=== PATIENT | female | born 1990 | race Caucasian/White ===

== ENCOUNTER 2017-08-12 01:33 | Emergency (ER) | payer BC ==
[2017-08-12 01:47] VITALS: BP 104/63
[2017-08-12] MEDS ORDERED: Ketorolac 30 MG/ML SDV IM ONE (02:04)
--- NOTE | 2017-08-12 02:14 | EDM.PDOC ---
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 Much cramping. Is having a miscarriage. A recent US revealed demise. She is 10 weeks from conception. demise at 8 weeks. Has not had a hgb checked. Cramping/pain much worse since 8 pm otherwise ongoing mildly for 4 days. Onset: Other Onset Date: 08/08/17 Duration: Day(s):, Getting Worse Location: Reports: Abdomen (Uterine) Quality: Reports: Other (cramping) Severity: Moderate Improves with: Reports: None Worsens with: Reports: Other (? time) Context: Reports: Other (First trimester miscarriage. ) Associated Symptoms: Reports: Weakness, Other (light-headed.). Denies: Fever/ Chills Treatments ATTENDING PHYSICIAN: Reports: Other (see below) (none) abdomina pain Pain Score (Numeric/FACES): 8 - Related Data Allergies Allergy/AdvReac Type Severity Reaction Status Date / Time acetaminophen [From Percocet] Allergy Hyperactivi Verified 08/12/17 01:41 ty hydrocodone [From Vicodin] Allergy Other Verified 08/12/17 01:41 oxycodone [From Percocet] Allergy Hyperactivi Verified 08/12/17 01:41 ty Past Medical History HEENT History: Reports: Impaired Vision Cardiovascular History: Reports: None Respiratory History: Reports: None Gastrointestinal History: Reports: None Genitourinary History: Reports: None 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: 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: , Spontaneous , Other (See Below) Other OB/BYN History: x2 miscarriages Musculoskeletal History: Reports: None Neurological History: Reports: None Psychiatric History: Reports: Anxiety Endocrine/Metabolic History: Reports: None Hematologic History: Reports: None Immunologic History: Reports: None Oncologic (Cancer) History: Reports: None Dermatologic History: Reports: None - Infectious Disease History Infectious Disease History: Reports: Chicken Pox - Past Surgical History Head Surgeries/Procedures: Reports: None HEENT Surgical History: Reports: None Cardiovascular Surgical History: Reports: None Respiratory Surgical History: Reports: None GI Surgical History: Reports: None Female Surgical History: Reports: D&C Endocrine Surgical History: Reports: None Neurological Surgical History: Reports: None Musculoskeletal Surgical History: Reports: Other (See Below) Other Musculoskeletal Surgeries/Procedures:: achilles tendon repair Oncologic Surgical History: Reports: None Dermatological Surgical History: Reports: None Social & Family History - Tobacco Use Smoking Status *Q: Never Smoker - Caffeine Use Caffeine Use: Reports: None - Recreational Drug Use Recreational Drug Use: No ED ROS GENERAL - Review of Systems Review Of Systems: See Below Constitutional: Reports: No Symptoms, Weakness. Denies: Fever, Chills HEENT: Reports: No Symptoms Respiratory: Reports: Shortness of Breath (mild) Cardiovascular: Reports: Lightheadedness Endocrine: Reports: No Symptoms GI/Abdominal: Reports: Abdominal Pain (crampy low abdomen.). Denies: Hematemesis, Hematochezia : Reports: Other (passing clots vaginally) Musculoskeletal: Reports: No Symptoms Skin: Reports: No Symptoms Neurological: Reports: No Symptoms Psychiatric: Reports: No Symptoms ED EXAM - Physical Exam Exam: See Below Exam Limited By: No Limitations General Appearance: Alert, WD/WN, Anxious, Mild Distress Eye Exam: Bilateral Eye: Normal Inspection Ears: Normal External Exam, Normal Canal, Hearing Grossly Normal, Normal TMs Nose: Normal Inspection, Normal Mucosa, No Blood Throat/Mouth: Normal Inspection, Normal Lips, Normal Teeth, Normal Gums, Normal Oropharynx, Normal Voice, No Airway Compromise Head: Atraumatic, Normocephalic Neck: Normal Inspection, Supple Respiratory/Chest: No Respiratory Distress, Lungs Clear, Normal Breath Sounds, No Accessory Muscle Use Cardiovascular: Regular Rate, Rhythm, No Edema GI/Abdominal Exam: Normal Bowel Sounds, Soft, Non-Tender, No Distention Back Exam: Normal Inspection Extremities: Normal Inspection, Normal Range of Motion, Non-Tender, No Pedal Edema Neurological: Alert, Oriented, CN II-XII Intact, Normal Cognition, No Motor/ Sensory Deficits Psychiatric: Normal Affect, Normal Mood Skin Exam: Warm, Dry, Intact, Normal Color, No Rash Lymphatic: No Adenopathy Course - Vital Signs Last Recorded V/S: Last Vital Signs Temp 36.3 C 08/12/17 01:42 Pulse 68 08/12/17 01:42 Resp 17 08/12/17 01:42 BP 104/63 08/12/17 01:42 Pulse Ox 100 08/12/17 02:18 Orthostatic Blood Pressure [ 105/71 Standing] Orthostatic Blood Pressure [ 99/68 Sitting] Orthostatic Blood Pressure [ 116/73 Supine] - Orders/Labs/Meds Orders: Active Orders 24 hr Category Date Time Status Orthostatic Vital Signs [RC] ASDIRECTED Care 08/12/17 02:03 Active LORazepam [Ativan] Med 08/12/17 02:29 Once 0.5 mg PO ONETIME ONE Labs: Laboratory Tests 08/12/17 Range/Units 02:04 Hgb 12.2 (12.0-15.0) g/dL Meds: Medications Discontinued Medications Generic Name Dose Route Start Last Admin Trade Name Danyel PRN Reason Stop Dose Admin Ketorolac Tromethamine 30 mg 08/12/17 02:04 Toradol IM 08/12/17 02:05 ONETIME ONE Departure - Departure Time of Disposition: 02:50 Disposition: Home, Self-Care 01 Condition: Good Clinical Impression: Incomplete miscarriage - Discharge Information Referrals: Corrine Vernon CNM [Primary Care Provider] - Forms: ED Department Discharge - My Orders Last 24 Hours: My Active Orders 08/12/17 02:03 Orthostatic Vital Signs [RC] ASDIRECTED 08/12/17 02:29 LORazepam [Ativan] 0.5 mg PO ONETIME ONE - Assessment/Plan Last 24 Hours: My Active Orders 08/12/17 02:03 Orthostatic Vital Signs [RC] ASDIRECTED 08/12/17 02:29 LORazepam [Ativan] 0.5 mg PO ONETIME ONE
[2017-08-12] MEDS ORDERED: LORazepam 0.5 MG Tab PO ONE (02:29)
== END 2017-08-12 03:00 | disposition home or self-care (01) ==
LOC: JP.ED 01:33
DX: O03.9 Complete or unspecified spontaneous abortion without complication (principal); Z98.890 Other specified postprocedural states; Z88.5 Allergy status to narcotic agent; Z88.6 Allergy status to analgesic agent
CPT/HCPCS: 36415; 85018; 96372; 99284; A9270; J1885

== ENCOUNTER 2017-10-23 17:42 | Emergency (ER) | payer BC ==
--- NOTE | 2017-10-23 18:12 | EDM.PDOC ---
ED HPI GENERAL MEDICAL PROBLEM - General Chief Complaint: General Stated Complaint: CHEST PAIN Time Seen by Provider: 10/23/17 18:11 Source of Information: Reports: Patient History Limitations: Reports: No Limitations - History of Present Illness INITIAL COMMENTS - FREE TEXT/NARRATIVE: 26-year-old female who has had a persistent right upper quadrant abdominal and chest discomfort for the past 2 weeks. A gallbladder ultrasound was normal, she scheduled for a HIDA scan tomorrow. No fevers or chills, intermittent nausea and no diarrhea or distention of the abdomen. No urinary symptoms. She is having a lot of "night sweats". She has a past history of anaplasmosis and Lyme' s disease, she is concerned the symptoms are similar. At times her pain radiates to the back, it does not seem to be related to meals. She can even have pain when waking up from sleep. Onset: Unknown/Unsure (Symptoms have been ongoing for weeks) Location: Reports: Chest, Abdomen Severity: Moderate Improves with: Reports: None Worsens with: Reports: None Associated Symptoms: Reports: Chest Pain. Denies: Cough, Diaphoresis, Loss of Appetite, Shortness of Breath Right Lower Chest Pain Score (Numeric/FACES): 6 - Related Data Allergies Allergy/AdvReac Type Severity Reaction Status Date / Time acetaminophen [From Percocet] Allergy Hyperactivi Verified 08/12/17 01:41 ty hydrocodone [From Vicodin] Allergy Other Verified 08/12/17 01:41 oxycodone [From Percocet] Allergy Hyperactivi Verified 08/12/17 01:41 ty Past Medical History HEENT History: Reports: Impaired Vision Cardiovascular History: Reports: None, Other (See Below) Other Cardiovascular History: echo a month ago Respiratory History: Reports: None Gastrointestinal History: Reports: None Genitourinary History: Reports: None 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: , 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 , Other (See Below) Other OB/BYN History: x2 miscarriages Musculoskeletal History: Reports: None Neurological History: Reports: None Psychiatric History: Reports: Anxiety Endocrine/Metabolic History: Reports: None Hematologic History: Reports: None Immunologic History: Reports: Other (See Below) Other Immunologic History: history of lymes and anaplasmosis Oncologic (Cancer) History: Reports: None Dermatologic History: Reports: None - Infectious Disease History Infectious Disease History: Reports: Chicken Pox - Past Surgical History Head Surgeries/Procedures: Reports: None HEENT Surgical History: Reports: None Cardiovascular Surgical History: Reports: None Respiratory Surgical History: Reports: None GI Surgical History: Reports: None Female Surgical History: Reports: D&C Endocrine Surgical History: Reports: None Neurological Surgical History: Reports: None Musculoskeletal Surgical History: Reports: Other (See Below) Other Musculoskeletal Surgeries/Procedures:: achilles tendon repair Oncologic Surgical History: Reports: None Dermatological Surgical History: Reports: None Social & Family History - Tobacco Use Smoking Status *Q: Never Smoker - Caffeine Use Caffeine Use: Reports: Coffee - Recreational Drug Use Recreational Drug Use: No ED ROS GENERAL - Review of Systems Review Of Systems: See Below Constitutional: Reports: Diaphoresis (Nighttime sweats). Denies: Fever, Chills HEENT: Reports: No Symptoms Respiratory: Denies: Shortness of Breath, Cough Cardiovascular: Reports: Chest Pain (Anterior right lower chest just above the right upper quadrant) GI/Abdominal: Reports: Abdominal Pain, Nausea. Denies: Diarrhea, Decreased Appetite, Vomiting : Reports: No Symptoms Skin: Reports: No Symptoms Neurological: Denies: Headache Psychiatric: Reports: No Symptoms ED EXAM, GENERAL - Physical Exam Exam: See Below Exam Limited By: No Limitations General Appearance: Alert, No Apparent Distress Eye Exam: Bilateral Eye: Normal Inspection (EOMs intact, no jaundice, hydration normal) Respiratory/Chest: No Respiratory Distress, Lungs Clear, Other (No chest wall tenderness to palpation or lateral compression) Cardiovascular: Regular Rate, Rhythm GI/Abdominal: Soft, Tender (I can reproduce tenderness with palpation of the right upper quadrant, there is no guarding) Back Exam: No: CVA Tenderness (R), CVA Tenderness (L) Neurological: Alert, Oriented Psychiatric: Normal Affect, Normal Mood Skin Exam: Warm, Dry Course - Vital Signs Last Recorded V/S: Last Vital Signs Temp 97.8 F 10/23/17 20:44 Pulse 79 10/23/17 20:44 Resp 16 10/23/17 20:44 BP 116/76 10/23/17 20:44 Pulse Ox 99 10/23/17 20:44 - Orders/Labs/Meds Orders: Active Orders 24 hr Category Date Time Status Peripheral IV Care [RC] . DIRECTED Care 10/23/17 18:39 Active Abdomen Pelvis w Cont [CT] Stat Exams 10/23/17 19:11 Taken EHRLICHIA CHAFFEENSIS, IGG&IGM [REF] Stat Lab 10/23/17 18:37 Received LYME AB SCREEN RFLX [REF] Stat Lab 10/23/17 18:37 Received Labs: Laboratory Tests 10/23/17 10/23/17 10/23/17 Range/Units 18:37 18:37 18:43 WBC 8.4 (4.5-11.0) K/uL RBC 4.84 (3.30-5.50) M/uL Hgb 15.2 H D (12.0-15.0) g/dL Hct 43.0 (36.0-48.0) % MCV 89 (80-98) fL MCH 31 (27-31) pg MCHC 35 (32-36) % Plt Count 250 (150-400) K/uL Neut % (Auto) 67 H (36-66) % Lymph % (Auto) 26 (24-44) % [place] % (Auto) 6 (2-6) % Eos % (Auto) 1 L (2-4) % Baso % (Auto) 1 (0-1) % Sodium 138 L (140-148) mmol/L Potassium 3.2 L (3.6-5.2) mmol/L Chloride 102 (100-108) mmol/L Carbon Dioxide 27 (21-32) mmol/L Anion Gap 12.2 (5.0-14.0) mmol/L BUN 17 (7-18) mg/dL Creatinine 0.7 (0.6-1.0) mg/dL Est Cr Clr Drug Dosing 96.32 mL/min Estimated GFR (MDRD) > 60 (>60) Glucose 93 (74-106) mg/dL Calcium 9.4 (8.5-10.1) mg/dL Total Bilirubin 0.5 (0.2-1.0) mg/dL AST 21 (15-37) U/L ALT 37 (12-78) U/L Alkaline Phosphatase 49 (46-116) U/L C-Reactive Protein 0.15 (0.0-0.3) mg/dL Total Protein 8.0 (6.4-8.2) g/dL Albumin 4.4 (3.4-5.0) g/dL Globulin 3.6 H (2.3-3.5) g/dL Albumin/Globulin Ratio 1.2 (1.2-2.2) Amylase 68 (25-115) U/L Lipase 163 (73-393) U/L Urine Color Urine Appearance Urine pH (4.5-8.0) Ur Specific [place] (1.008-1.030) Urine Protein (NEGATIVE) mg/dL Urine Glucose (UA) (NEGATIVE) mg/dL Urine Ketones (NEGATIVE) mg/dL Urine Occult Blood (NEGATIVE) Urine Nitrite (NEGATIVE) Urine Bilirubin (NEGATIVE) Urine Urobilinogen (NORMAL) mg/dL Ur Leukocyte Esterase (NEGATIVE) Urine RBC (0-5) Urine WBC (0-5) Ur Epithelial Cells Amorphous Sediment Urine Bacteria Urine Mucus Urine HCG, Qual Negative 10/23/17 Range/Units 18:43 WBC (4.5-11.0) K/uL RBC (3.30-5.50) M/uL Hgb (12.0-15.0) g/dL Hct (36.0-48.0) % MCV (80-98) fL MCH (27-31) pg MCHC (32-36) % Plt Count (150-400) K/uL Neut % (Auto) (36-66) % Lymph % (Auto) (24-44) % [place] % (Auto) (2-6) % Eos % (Auto) (2-4) % Baso % (Auto) (0-1) % Sodium (140-148) mmol/L Potassium (3.6-5.2) mmol/L Chloride (100-108) mmol/L Carbon Dioxide (21-32) mmol/L Anion Gap (5.0-14.0) mmol/L BUN (7-18) mg/dL Creatinine (0.6-1.0) mg/dL Est Cr Clr Drug Dosing mL/min Estimated GFR (MDRD) (>60) Glucose (74-106) mg/dL Calcium (8.5-10.1) mg/dL Total Bilirubin (0.2-1.0) mg/dL AST (15-37) U/L ALT (12-78) U/L Alkaline Phosphatase (46-116) U/L C-Reactive Protein (0.0-0.3) mg/dL Total Protein (6.4-8.2) g/dL Albumin (3.4-5.0) g/dL Globulin (2.3-3.5) g/dL Albumin/Globulin Ratio (1.2-2.2) Amylase (25-115) U/L Lipase (73-393) U/L Urine Color Yellow Urine Appearance Clear Urine pH 7.0 (4.5-8.0) Ur Specific [place] 1.015 (1.008-1.030) Urine Protein Negative (NEGATIVE) mg/dL Urine Glucose (UA) Normal (NEGATIVE) mg/dL Urine Ketones Negative (NEGATIVE) mg/dL Urine Occult Blood Negative (NEGATIVE) Urine Nitrite Negative (NEGATIVE) Urine Bilirubin Negative (NEGATIVE) Urine Urobilinogen Normal (NORMAL) mg/dL Ur Leukocyte Esterase Negative (NEGATIVE) Urine RBC 0-5 (0-5) Urine WBC 0-5 (0-5) Ur Epithelial Cells Few Amorphous Sediment Few Urine Bacteria Rare Urine Mucus Few Urine HCG, Qual Meds: Medications Discontinued Medications Generic Name Dose Route Start Last Admin Trade Name Freq PRN Reason Stop Dose Admin Sodium Chloride 70 mls @ 3 mls/sec 10/23/17 19:45 10/23/17 19:49 Normal Saline IV 3 mls/sec ASDIRECTED BORIS Administration Iopamidol 81 ml 10/23/17 19:31 10/23/17 19:49 Isovue-300 (61%) IV 10/24/17 19:32 81 ml . DIRECTED PRN Administration RADIOLOGY EXAM Sodium Chloride 10 ml 10/23/17 18:39 10/23/17 18:40 Saline Flush FLUSH 10 ml ASDIRECTED PRN Administration Keep Vein Open Sodium Chloride 10 ml 10/23/17 19:31 10/23/17 19:49 Saline Flush FLUSH 10 ml ONETIME PRN Administration per radiology protocol - Re-Assessments/Exams Free Text/Narrative Re-Assessment/Exam: 10/23/17 18:48 A CBC, CMP, amylase, lipase, CRP, and tick disease labs were drawn. A UA with urine is also obtained. 10/23/17 19:15 labs returned very reassuring. CRP, CBC, CMP, amylase and lipase were all normal other than a mildly low potassium at 3.2. The CT scan with IV contrast was then ordered. UA was negative, urine negative. 10/23/17 20:54 CT scan showed ovarian cysts but no other abdominal pathology. Patient was given results of the tests and a CD copy, will return tomorrow for her HIDA scan as scheduled. Departure - Departure Time of Disposition: 21:10 Disposition: Home, Self-Care 01 Condition: Good Clinical Impression: Abdominal pain Qualifiers: Abdominal location: right upper quadrant Qualified Code(s): R10.11 - Right upper quadrant pain Ovarian cyst Qualifiers: Laterality: bilateral Qualified Code(s): N83.201 - Unspecified ovarian cyst, right side - Discharge Information Instructions: Abdominal Pain, Adult, [id number] Referrals: Mariajose Dyer NP [Primary Care Provider] - Forms: ED Department Discharge Care Plan Goals: Return tomorrow for your HIDA scan as scheduled. Recheck with your fertility specialist with the results of the CT scan and labs. - My Orders Last 24 Hours: My Active Orders 10/23/17 18:37 EHRLICHIA CHAFFEENSIS, IGG&IGM [REF] Stat LYME AB SCREEN RFLX [REF] Stat 10/23/17 18:39 Peripheral IV Care [RC] . DIRECTED 10/23/17 19:11 Abdomen Pelvis w Cont [CT] Stat - Assessment/Plan Last 24 Hours: My Active Orders 10/23/17 18:37 EHRLICHIA CHAFFEENSIS, IGG&IGM [REF] Stat LYME AB SCREEN RFLX [REF] Stat 10/23/17 18:39 Peripheral IV Care [RC] . DIRECTED 10/23/17 19:11 Abdomen Pelvis w Cont [CT] Stat
[2017-10-23] MEDS ORDERED: Sodium Chloride 0.9% 10 ML Syringe FLUSH PRN ×2 (18:39→19:31)
[2017-10-23] MEDS ORDERED: Iopamidol 612 MG/ML 100 ML Bottle IV PRN (19:31)
[2017-10-23 20:44] VITALS: BP 116/76
== END 2017-10-23 21:10 | disposition home or self-care (01) ==
LOC: JP.ED 17:42
DX: N83.201 Unspecified ovarian cyst, right side (principal); Z88.8 Allergy status to other drugs, medicaments and biological substances
CPT/HCPCS: 74177; 80053; 81001; 81025; 82150; 83690; 85025; 86140; 86618; 86666; 99285; J7030; J7050; Q9967; 36415

== ENCOUNTER 2017-10-25 07:49 | Day surgery (SDC) | payer BC ==
[2017-10-25] MEDS ORDERED: Propofol 200 MG/20 ML SDV ONE (07:53)
[2017-10-25] MEDS ORDERED: fentaNYL 250 MCG/5 ML SDV ONE ×2 (07:53→11:13)
[2017-10-25] MEDS ORDERED: Rocuronium 50 MG/5 ML Vial ONE (07:53)
[2017-10-25] MEDS ORDERED: Acetaminophen 500 MG Tab PO ONE (08:30)
[2017-10-25] MEDS: Dextrose 5%-Lactated Ringers 1,000 ML IV SCH ×2 (08:51→13:59)
[2017-10-25] MEDS ORDERED: Ketamine 500 MG/5 ML MDV IV ONE (09:45)
[2017-10-25] MEDS: cefOXitin 2 GM in Premix Bag 1 BAG IV ONE ×2 (10:54→13:21)
[2017-10-25] MEDS ORDERED: Ondansetron 4 MG/2 ML SDV ONE (10:55)
[2017-10-25] MEDS ORDERED: Neostigmine Methylsulfate 1 MG/ML 5 ML Syringe ONE (10:55)
[2017-10-25] MEDS ORDERED: Glycopyrrolate 0.2 MG/ML 5 ML MDV ONE (10:55)
[2017-10-25] MEDS ORDERED: Dexamethasone 4 MG/ML SDV ONE (10:55)
[2017-10-25] MEDS: Bupivacaine 0.5%/EPINEPHrine 1:200,000 50 ML MDV ONE ×2 (11:23→11:56)
[2017-10-25] MEDS ORDERED: HYDROmorphone/Normal Saline 15 MG/30 ML PCA IV PRN (11:53)
[2017-10-25] MEDS ORDERED: Naloxone 0.4 MG/ML SDV IV PRN (13:16)
[2017-10-25] MEDS ORDERED: Loratadine 10 MG Tab PO PRN (13:19)
[2017-10-25] MEDS ORDERED: HYDROmorphone 2 MG Tab PO PRN (13:19)
[2017-10-25] MEDS ORDERED: Ondansetron 4 MG/2 ML SDV IVPUSH PRN (14:00)
[2017-10-25] MEDS: Acetaminophen 325 MG Tab PO SCH ×2 (15:40→21:38)
[2017-10-25] MEDS ORDERED: Pantoprazole 40 MG Vial IVPUSH SCH (16:00)
[2017-10-25] MEDS: cefOXitin 2 GM in Sodium Chloride 0.9% 50 ML IV SCH ×2 (16:57→22:28)
[2017-10-26] MEDS: Dextrose 5%-Lactated Ringers 1,000 ML IV SCH (00:55)
[2017-10-26] MEDS: Acetaminophen 325 MG Tab PO SCH ×2 (03:58→09:45)
[2017-10-26 08:47] VITALS: BP 104/65
[2017-10-26] MEDS ORDERED: Magnesium Hydroxide 400 MG/5 ML Susp 30 ML Cup PO ONE (09:12)
--- NOTE | 2017-10-27 11:10 | DISCH ---
ADMISSION DIAGNOSIS: Biliary dyskinesia. DISCHARGE DIAGNOSIS: Laparoscopic cholecystectomy for biliary dyskinesia on 10/25/2017 by Michael Santacruz MD. HISTORY: Ms. Tamica Sanabria is a 26-year-old female with right upper quadrant abdominal pain and symptomatic HIDA scan. After preoperative evaluation and discussion of possible risks and possible complications, she wished to proceed with surgical procedure. HOSPITAL COURSE: Tamica had her surgery on 10/25/2017. She had no operative complications. She was able to be discharged to home on postoperative day 1. PHYSICAL EXAMINATION: GENERAL: Tamica Sanabria is a 26-year-old female. VITAL SIGNS: Height is 5 feet 2 inches and weight is 120 pounds. Temperature is 98.6, pulse is 79, respirations are 14, and blood pressure is 108/62. HEENT: Negative. NECK: Supple. HEART: Regular rate and rhythm. LUNGS: Clear. ABDOMEN: Dressings are dry and intact. Abdominal binder is on. EXTREMITIES: Without peripheral edema. DISPOSITION: Discharged to home. CONDITION: Stable and improving. FOLLOWUP APPOINTMENT: On 11/03/2017 at 9:30 a.m. HOME MEDICATIONS: 1. Tylenol 650 mg q.6 hours p.r.n. pain. 2. Milk of magnesia 30 mL, two were sent home, to take one daily p.r.n. constipation. 3. Meperidine (Meperitab) 50 mg to 100 mg q.4 hours p.r.n. pain, #20. 4. She is to resume her home medication of vitamins one daily. DIET AFTER DISCHARGE: Usual diet as tolerated. Drink eight to ten glasses of water a day. ACTIVITY: No lifting greater than 10 pounds for two weeks. Other Activity: Walk at least six times daily inside your home. Driving, do not drive on pain medication. Shower/bathing, may shower. Notify provider if any fever, increased pain, nausea, or vomiting. Keep site clean and dry. Wound Incision Care: Wear abdominal binder for two weeks and then as tolerated. Use incentive spirometer 10 times every hour while awake for one week. Work Release: May return to work on 11/01/2017 with no lifting greater than ten pounds until 11/08/2017.
--- NOTE | 2017-11-01 08:26 | OR ---
DATE OF PROCEDURE: 10/25/2017 PREOPERATIVE DIAGNOSIS: Biliary dyskinesia. POSTOPERATIVE DIAGNOSIS: Biliary dyskinesia. PROCEDURE PERFORMED: Laparoscopic cholecystectomy ([id number]). ANESTHESIA: General. LEGAL REFEREE: Radha Lind PA-C. INDICATIONS FOR PROCEDURE: This is a 26-year-old presenting with increasingly symptomatic biliary colic, CCK stimulated HIDA scan was obtained, which showed a low ejection fraction, along with the CCK causing reproduction of her symptoms. Plan is to proceed with a laparoscopic cholecystectomy. Potential risks including bleeding, infection, injury to underlying viscera such as common bile duct, possible persistence of symptoms postoperatively were all reviewed, and the patient wishes to proceed. The patient has had two complicated pregnancies, both resulting in loss of this year, and she would like to have her pelvis examined as well. This would be undertaken simultaneously, but we will not plan any intervention should there be any pathology identified, leaving that further to metallographic technician, should that be necessary. DETAILS OF PROCEDURE: The patient was taken to the operating room and placed in a supine position. After general endotracheal anesthesia was induced, she was converted to a lithotomy position and the abdomen prepped and draped. A transverse epigastric incision was made and peritoneal cavity entered under direct vision with Optiview trocar, inflated to 15 mmHg pressure with CO2. The laparoscope was then reinserted. No underlying trocar insertion site injuries were seen. Following this, a 12- mm subumbilical trocar with a single 5 mm right abdominal trocar were placed. At this point, we examined the pelvis. The uterus could be lifted up easily on each side by bluntly retracting the uterine tubes and broad ligaments on each side. The patient had no significant fluid in that area. The uterus appeared to be normal and the tubes and ovaries appeared to be completely normal. There were no signs of endometriosis or other pathology. Overall that appeared to be an entirely normal exam. Attention was then taken to the cholecystectomy, and the gallbladder was retracted anteriorly and laterally and was noted to be somewhat edematous. The dissection began on the gallbladder neck with Harmonic scalpel and continued around the gallbladder neck/cystic duct junction. Once that area was well-delineated, as was the adjacent cystic artery, both structures were clipped 3 times proximally and once distally and divided. The gallbladder was then dissected off the gallbladder bed using Harmonic scalpel and delivered through the upper epigastric trocar site. It contained some small amount of sludge-like material, as well as having a cholesterolosis of the gallbladder mucosa. The area of dissection was inspected. A drain was felt not to be necessary. The trocars were then sequentially removed. The fascia at the 12 mm sites was closed with 0 Vicryl stitch and the skin with 4-0 Vicryl subcuticular stitch, along with Dermabond, and the patient was taken to the recovery room in satisfactory condition. Physician investigative assistant, Radha Lind, played an essential role in assisting in this case, helping to retract structures as needed, positioning the patient, as well as suturing and cutting sutures when indicated. Her presence improved patient safety and decreased operative time. Michael Santacruz MD /[id number]
== END 2017-10-26 10:00 | disposition home or self-care (01) ==
LOC: JP.SDS 07:49 → JP.2SS 12:05 → JP.SDS 10-26 10:00
PROVIDERS: ATTEND Surgery
DX: K81.1 Chronic cholecystitis (principal); F41.9 Anxiety disorder, unspecified; Z88.8 Allergy status to other drugs, medicaments and biological substances
CPT/HCPCS: 36415; 47562; 82247; 84075; 85027; 88304; 94762; A9270; C9113; J0694; J1100; J1170; J2405; J2704; J2710; J3010; J7030; J7042; J7050

== ENCOUNTER 2021-05-30 08:00 | Observation (INO) | payer BC ==
[2021-05-30] MEDS ORDERED: Ondansetron 4 MG/2 ML SDV IV PRN (11:08)
[2021-05-30] MEDS ORDERED: Calcium Carbonate 500 MG Tab.Chew PO PRN (11:08)
[2021-05-30] MEDS ORDERED: Sodium Chloride 0.9% 10 ML Syringe FLUSH PRN (11:08)
[2021-05-30] MEDS ORDERED: Lactated Ringers 1,000 ML IV SCH (11:15)
--- NOTE | 2021-05-30 11:18 | PCM.LDHP ---
L&D History of Present Illness - General Date of Service: 05/30/21 Admit Problem/Dx: Patient Status Order with Admit Dx/Problem 05/30/21 11:08 Patient Status [ADT] Routine Admission Diagnosis/Problem Admission Diagnosis/Problem Labor established Source of Information: Patient History Limitations: Reports: No Limitations - History of Present Illness Introduction:: 05/30/21 Patient comes to L & D this morning with complaints of contractions that started at 0300 today. They have been consistent every 3-5 minutes since around that time, membranes intact. She is 39 0/7 today. She is a , uncomplicated first vaginal . SVE is 1.5/70/-2. She stayed to walk around a bit and now has bloody show, contractions still "uncomfortable" but not painful. SVE still 1.5 but thinner and more mid position cervix. She is given options: 1. go home and return with active labor 2. Stay here and continue to walk and see if things progress 3. augment early labor. She is counseled that using pitocin may increase the risk of distress or need for section. She would like to proceed with augmenting the contractions due to moderate discomfort with this prodromal labor. Patient is AB positive blood type, GBS negative, Hep B/C/HIV/RPR all NR, rubella immune. Timing/Duration: Reports: minutes: (1-2) Location, : Reports: Abdomen Quality: Reports: Dull Severity: Moderate Improves with: Reports: Movement Worsens with: Reports: None Associated Symptoms: Reports: vaginal bleeding (bloody show). Denies: vaginal fluid - Related Data Allergies/Adverse Reactions: Allergies Allergy/AdvReac Type Severity Reaction Status Date / Time hydrocodone [From Vicodin] Allergy Other Verified 10/25/17 08:11 nickel Allergy Rash Verified 10/25/17 08:11 oxycodone [From Percocet] AdvReac Hyperactivi Verified 10/25/17 08:11 ty Home Medications: Home Meds [id number]/Levomefolate/Omega3/Dha [ Plus-Dha Combo Pack] 1 each PO DAILY 10/24/17 [History] Acetaminophen [Tylenol] 650 mg PO Q6H tablet 10/26/17 [Rx] Magnesium Hydroxide [Milk of Magnesia] 30 ml PO DAILY PRN #2 ml 10/26/17 [Rx] Meperidine [Meperitab] 50 - 100 mg PO Q4H PRN #20 tablet 10/26/17 [Rx] Past Medical History HEENT History: Reports: Impaired Vision Cardiovascular History: Reports: None, Other (See Below) Other Cardiovascular History: echo a month ago Respiratory History: Reports: None Gastrointestinal History: Reports: None Genitourinary History: Reports: None 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: , 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 , Other (See Below) : 5 Para: 1 LMP (Approximate): Other OB/BYN History: x3 miscarriages Musculoskeletal History: Reports: None Neurological History: Reports: None Psychiatric History: Reports: Anxiety Endocrine/Metabolic History: Reports: None Hematologic History: Reports: None Immunologic History: Reports: Other (See Below) Other Immunologic History: history of lymes and anaplasmosis Oncologic (Cancer) History: Reports: None Dermatologic History: Reports: None - Infectious Disease History Infectious Disease History: Reports: Chicken Pox - Past Surgical History Head Surgeries/Procedures: Reports: None HEENT Surgical History: Reports: None Cardiovascular Surgical History: Reports: None Respiratory Surgical History: Reports: None GI Surgical History: Reports: None Female Surgical History: Reports: D&C Endocrine Surgical History: Reports: None Neurological Surgical History: Reports: None Musculoskeletal Surgical History: Reports: Other (See Below) Other Musculoskeletal Surgeries/Procedures:: achilles tendon repair Oncologic Surgical History: Reports: None Dermatological Surgical History: Reports: None Social & Family History - Caffeine Use Caffeine Use: Reports: Coffee H&P Review of Systems - Review of Systems: Review Of Systems: See Below General: Reports: No Symptoms HEENT: Reports: No Symptoms Pulmonary: Reports: No Symptoms Cardiovascular: Reports: No Symptoms Gastrointestinal: Reports: No Symptoms Genitourinary: Reports: No Symptoms Musculoskeletal: Reports: No Symptoms Skin: Reports: No Symptoms Psychiatric: Reports: No Symptoms Neurological: Reports: No Symptoms Hematologic/Lymphatic: Reports: No Symptoms Immunologic: Reports: No Symptoms L&D Exam - Exam Exam: See Below - Vital Signs Vital Signs: Last Vital Signs Temp 36.2 C 05/30/21 08:19 Pulse 83 05/30/21 08:19 Resp 16 05/30/21 08:19 BP 123/84 05/30/21 08:19 Pulse Ox 100 05/30/21 08:19 - OB Specific Contraction Duration (sec): 40-70 Contraction Frequency (min): 1-3 Contraction Intensity: Moderate Movement: Active Heart Tones: Present Heart Tones per Min: 135 Heart Rate (FHR) Variability: Moderate (6-25 bmp) Presentation: Vertex Estimated Weight: 7 lb - Dixon Score Dixon Score Cervix Position: Posterior Dixon Score Consistency: Soft Dixon Score Effacement: >80% Dixon Score Dilation: 1-2 cm Dixon Score 's Station: -2 Dixon Score Total: 7 - Exam General: Alert, Oriented HEENT: PERRLA, Conjunctiva Clear, Hearing Intact, Mucosa Moist & [place], Nares Patent, Normal Nasal Septum, Pupils Equal, Pupils Reactive Neck: Supple, Trachea Midline Lungs: Clear to Auscultation, Normal Respiratory Effort Cardiovascular: Regular Rate, Regular Rhythm GI/Abdominal Exam: Normal Bowel Sounds, Soft, Non-Tender, Pelvis Stable Rectal Exam: Normal Exam Genitourinary: Normal external exam, Normal bimanual exam, Cervical dilitation, Enlarged uterus Back Exam: Normal Inspection, Full Range of Motion Extremities: Normal Inspection, Normal Range of Motion, Non-Tender, No Pedal Edema, Normal Capillary Refill Skin: Warm, Dry, Intact Neurological: Cranial Nerves Intact, Reflexes Equal Bilateral Psychiatric: Alert, Normal Affect, Normal Mood - Patient Data Lab Results Last 24 hrs: Laboratory Results - last 24 hr 05/30/21 Range/Units 08:32 Urine Color Yellow (YELLOW) Urine Appearance Slightly cloudy A (CLEAR) Urine pH 7.0 (5.0-8.0) Ur Specific [place] 1.010 (1.008-1.030) Urine Protein Negative (NEGATIVE) mg/dL Urine Glucose (UA) Negative (NEGATIVE) mg/dL Urine Ketones Negative (NEGATIVE) mg/dL Urine Occult Blood Negative (NEGATIVE) Urine Nitrite Negative (NEGATIVE) Urine Bilirubin Negative (NEGATIVE) Urine Urobilinogen 0.2 (0.2-1.0) EU/dL Ur Leukocyte Esterase Negative (NEGATIVE) Urine RBC Not seen (0-5) Urine WBC Not seen (0-5) Ur Epithelial Cells Occasional Amorphous Sediment Moderate Urine Bacteria Few Urine Mucus Few - Problem List (1) Term SNOMED Code(s): 26969733 ICD Code: Z34.90 - ENCNTR FOR SUPRVSN OF NORMAL , UNSP, UNSP TRIMESTER Status: Acute Current Visit: Yes (2) Labor established SNOMED Code(s): 03082617 ICD Code: [id number] - Status: Acute Current Visit: Yes Problem List Initiated/Reviewed/Updated: Yes Orders Last 24hrs: Active Orders 24 hr Category Date Time Status Patient Status [ADT] Routine ADT 05/30/21 11:08 Ordered Communication Order [RC] ASDIRECTED Care 05/30/21 11:08 Ordered Heart Tones [RC] PER UNIT ROUTINE Care 05/30/21 11:08 Ordered Notify Provider Vital Signs [RC] PRN Care 05/30/21 11:09 Ordered Notify Provider [RC] PRN Care 05/30/21 11:08 Ordered OB Check [OM.PC] Click to Edit Care 05/30/21 08:23 Ordered Up ad Amanda [RC] ASDIRECTED Care 05/30/21 11:08 Ordered VTE/DVT Education [RC] Click to Edit Care 05/30/21 11:09 Ordered Vital Signs [RC] PER UNIT ROUTINE Care 05/30/21 11:08 Ordered Regular Diet [DIET] Diet 05/30/21 Lunch Ordered CBC W/O DIFF,HEMOGRAM [HEME] Routine Lab 05/30/21 11:09 Ordered CORONAVIRUS COVID-19, CHRIS Routine Lab 05/30/21 11:09 Ordered DRUG SCREEN, URINE [URCHEM] Routine Lab 05/30/21 11:09 Ordered Calcium Carbonate [Tums] Med 05/30/21 11:08 Ordered 1,000 mg PO Q2HR PRN Lactated Ringers @ 125 MLS/HR(1000ml) Med 05/30/21 11:15 Ordered Lactated Ringers [Ringers, Lactated] 1,000 ml IV ASDIRECTED Ondansetron [Zofran] Med 05/30/21 11:08 Ordered 4 mg IV Q4H PRN Oxytocin/Normal Saline [Pitocin in NS 20 Units/1,000 ML Med 05/30/21 11:15 Ordered ] 20 unit in 1,000 ml IV TITRATE Sodium Chloride 0.9% [Saline Flush] Med 05/30/21 11:08 Ordered 10 ml FLUSH ASDIRECTED PRN DVT/VTE Prophylaxis Reflex [OM.PC] Routine Oth 05/30/21 11:08 Ordered Saline Lock Insert [OM.PC] Routine Oth 05/30/21 11:08 Ordered Resuscitation Status Routine Resus Stat 05/30/21 11:08 Ordered Medication Orders Calcium Carbonate/Glycine (Calcium Carbonate 500 Mg Tab.Chew) 1,000 mg PO Q2H PRN PRN Reason: Indigestion Lactated Ringer's (Ringers, Lactated) 1,000 mls @ 125 mls/hr IV ASDIRECTED BORIS Oxytocin/Sodium Chloride (Pitocin In Ns 20 Units/1,000 Ml) 20 unit in 1,000 mls @ 6 mls/hr IV TITRATE BORIS; Protocol Ondansetron HCl (Ondansetron 4 Mg/2 Ml Sdv) 4 mg IV Q4H PRN PRN Reason: Nausea/Vomiting Sodium Chloride (Sodium Chloride 0.9% 10 Ml Syringe) 10 ml FLUSH ASDIRECTED PRN PRN Reason: Keep Vein Open Assessment/Plan Comment:: 05/30/21 here with early labor, contractions every 1-3 minutes, moderate, lasting 60 seconds Category 1 tracing SVE 1.5/80/-2, patient reports being too uncomfortable to go home Patient requests augmentation of labor, we discussed risks and benefits, she would like to proceed GBS negative Uncomplicated Plan: Admit for early labor Augment contractions with Pitocin titration Plans epidural Anticipate
[2021-05-30 17:37] VITALS: BP 119/77; PULSE 74
--- NOTE | 2021-05-30 19:01 | PCM.PNLD ---
Labor Progress Note - VS & Meds Vital Signs: Last Vital Signs Temp 36.3 C 05/30/21 17:32 Pulse 74 05/30/21 17:32 Resp 16 05/30/21 17:32 BP 119/77 05/30/21 17:32 Pulse Ox 99 05/30/21 17:32 Active Medications: Current Medications Calcium Carbonate/Glycine (Calcium Carbonate 500 Mg Tab.Chew) 1,000 mg PO Q2H PRN PRN Reason: Indigestion Lactated Ringer's (Ringers, Lactated) 1,000 mls @ 125 mls/hr IV ASDIRECTED BORIS Last Admin: 05/30/21 11:20 Dose: 125 mls/hr Documented by: Oxytocin/Sodium Chloride (Pitocin In Ns 20 Units/1,000 Ml) 20 unit in 1,000 mls @ 6 mls/hr IV TITRATE BORIS; Protocol Last Titration: 05/30/21 18:35 Dose: 15 munits/min, 45 mls/hr Documented by: Ondansetron HCl (Ondansetron 4 Mg/2 Ml Sdv) 4 mg IV Q4H PRN PRN Reason: Nausea/Vomiting Sodium Chloride (Sodium Chloride 0.9% 10 Ml Syringe) 10 ml FLUSH ASDIRECTED PRN PRN Reason: Keep Vein Open - Uterine Contractions Uterine Monitoring Mode: External [place] Contraction Frequency (min): 2-3 Contraction Duration (sec): 50-70 Contraction Intensity: Moderate Uterine Resting Tone: Soft - Monitoring Monitor Mode: External Ultrasound Heart Rate (FHR) Variability: Moderate (6-25 bmp) Accelerations: Present, 15x15 Decelerations: None Strip Review: Category I - Vaginal Exam Dilation (cm): 2 Effacement (Percent): 80 Station: -2 Cervical Position: Posterior Sterile Vaginal Exam Performed By: Anel Amezquita - Labor Progress (Free Text) Labor Progress: 05/30/21 Patient had a nice contraction pattern all of the day with pitocin titration through out the day. Pitocin is up to 13 mu/hr and there has been no change in intensity of contractions. SVE 1.5-2/80/-2. I did have a conversation with patient that with no change on the pitocin I highly recommend we stop it and send her home. We discussed pushing her body when it is not ready and high risk of section. She agrees to this plan of care. Assessment: Failed augmentation of prodromal labor Category 1 tracing Plan: Home tonight to rest Hydrate Benadryl for sleep tonight Return in active labor or for appointment this week
== END 2021-05-30 19:25 | disposition home or self-care (01) ==
LOC: JP.OBCHECK 08:00 → JP.OB 11:04
PROVIDERS: ADMIT Advanced Practice Midwife; ATTEND Advanced Practice Midwife
DX: O47.1 False labor at or after 37 completed weeks of gestation (principal); Z20.822 Contact with and (suspected) exposure to COVID-19; Z3A.39 39 weeks gestation of pregnancy
CPT/HCPCS: 36415; 80305; 81001; 85027; 87635; 96365; 96366; G0378; J2590; J7120; 99211; U0002

== ENCOUNTER 2021-06-04 06:55 | Inpatient (IN) | payer BC ==
[2021-06-04] MEDS ORDERED: Lactated Ringers 1,000 ML IV ONE ×2 (07:29→07:30)
[2021-06-04] MEDS ORDERED: Ondansetron 4 MG/2 ML SDV IV PRN (07:29)
[2021-06-04] MEDS ORDERED: Sodium Chloride 0.9% 10 ML Syringe FLUSH PRN (07:29)
[2021-06-04] MEDS ORDERED: ePHEDrine 50 MG/ML SDV IVPUSH PRN (07:29)
[2021-06-04] MEDS ORDERED: Misoprostol 50 MCG (1/2 of 100 MCG) Tab VAG ONE ×3 (07:30→11:29)
--- NOTE | 2021-06-04 08:28 | PCM.LDHP ---
L&D History of Present Illness - General Date of Service: 06/04/21 Admit Problem/Dx: Patient Status Order with Admit Dx/Problem 06/04/21 07:29 Patient Status [ADT] Routine Admission Diagnosis/Problem Admission Diagnosis/Problem - Related Data Allergies/Adverse Reactions: Allergies Allergy/AdvReac Type Severity Reaction Status Date / Time hydrocodone [From Vicodin] Allergy Other Verified 05/30/21 11:55 nickel Allergy Rash Verified 05/30/21 11:55 oxycodone [From Percocet] AdvReac Hyperactivi Verified 05/30/21 11:55 ty Home Medications: Home Meds [id number]/Levomefolate/Omega3/Dha [ Plus-Dha Combo Pack] 1 each PO DAILY 10/24/17 [History] Famotidine [Heartburn Prevention] 20 mg PO BID 05/30/21 [History] busPIRone [Buspar] 5 mg PO BID 05/30/21 [History] Past Medical History HEENT History: Reports: Impaired Vision Cardiovascular History: Reports: None, Other (See Below) Other Cardiovascular History: echo 2 years ago. 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) Other OB/BYN History: x3 miscarriages Musculoskeletal History: Reports: None Neurological History: Reports: None Psychiatric History: Reports: Anxiety Endocrine/Metabolic History: Reports: None Hematologic History: Reports: None Immunologic History: Reports: Other (See Below) Other Immunologic History: history of lymes and anaplasmosis Oncologic (Cancer) History: Reports: None Dermatologic History: Reports: None - Infectious Disease History Infectious Disease History: Reports: Chicken Pox, Influenza - Past Surgical History Head Surgeries/Procedures: Reports: None HEENT Surgical History: Reports: Other (See Below) Other HEENT Surgeries/Procedures: wisdom teeth. Cardiovascular Surgical History: Reports: None Respiratory Surgical History: Reports: None GI Surgical History: Reports: Cholecystectomy Female Surgical History: Reports: D&C Endocrine Surgical History: Reports: None Neurological Surgical History: Reports: None Musculoskeletal Surgical History: Reports: Other (See Below) Other Musculoskeletal Surgeries/Procedures:: achilles tendon repair Oncologic Surgical History: Reports: None Dermatological Surgical History: Reports: None Social & Family History - Tobacco Use Tobacco Use Status *Q: Never Tobacco User Second Hand Smoke Exposure: No - Caffeine Use Caffeine Use: Reports: Coffee - Recreational Drug Use Recreational Drug Use: No H&P Review of Systems - Review of Systems: Review Of Systems: See Below General: Reports: No Symptoms HEENT: Reports: No Symptoms Pulmonary: Reports: No Symptoms Cardiovascular: Reports: No Symptoms Gastrointestinal: Reports: No Symptoms Genitourinary: Reports: No Symptoms Musculoskeletal: Reports: No Symptoms Skin: Reports: No Symptoms Psychiatric: Reports: No Symptoms Neurological: Reports: No Symptoms Hematologic/Lymphatic: Reports: No Symptoms Immunologic: Reports: No Symptoms L&D Exam - Exam Exam: See Below - Vital Signs Weight: 71.395 kg - OB Specific Movement: Active Heart Tones: Present Heart Rate (FHR) Variability: Moderate (6-25 bmp) Presentation: Vertex - Dixon Score Dixon Score Cervix Position: Midposition Dixon Score Consistency: Soft Dixon Score Effacement: 51-70% Dixon Score Dilation: 1-2 cm Dixon Score Infant's Station: -2 Dixon Score Total: 7 - Exam General: Alert, Oriented, Cooperative HEENT: PERRLA, Conjunctiva Clear, EACs Clear, EOMI, Hearing Intact, Mucosa Moist & [place], Nares Patent, Normal Nasal Septum, Posterior Pharynx Clear, TMs Clear Neck: Supple, Trachea Midline Lungs: Clear to Auscultation, Normal Respiratory Effort Cardiovascular: Regular Rate, Regular Rhythm GI/Abdominal Exam: Normal Bowel Sounds, Soft, Non-Tender, No Organomegaly, No Distention, No Abnormal Bruit, No Mass, Pelvis Stable Rectal Exam: Normal Exam, Normal Rectal Tone Genitourinary: Normal external exam, Normal bimanual exam, Normal speculum exam Back Exam: Normal Inspection, Full Range of Motion Extremities: Normal Inspection, Normal Range of Motion, Non-Tender, No Pedal Edema, Normal Capillary Refill Skin: Warm, Dry, Intact Neurological: Cranial Nerves Intact, Reflexes Equal Bilateral Psychiatric: Alert, Normal Affect, Normal Mood - Patient Data Lab Results Last 24 hrs: Laboratory Results - last 24 hr 06/04/21 06/04/21 06/04/21 Range/Units 07:05 07:20 07:20 WBC 11.6 H (4.5-11.0) K/uL RBC 4.27 (3.30-5.50) M/uL Hgb 13.0 (12.0-15.0) g/dL Hct 39.8 (36.0-48.0) % MCV 93 (80-98) fL MCH 30 (27-31) pg MCHC 33 (32-36) % Plt Count 215 (150-400) K/uL Sodium 138 L (140-148) mmol/L Potassium 3.8 (3.6-5.2) mmol/L Chloride 103 (100-108) mmol/L Carbon Dioxide 20 L (21-32) mmol/L Anion Gap 18.8 H (5.0-14.0) mmol/L BUN 11 (7-18) mg/dL Creatinine 0.9 (0.6-1.0) mg/dL Est Cr Clr Drug Dosing 72.29 mL/min Estimated GFR (MDRD) > 60 (>60) Glucose 102 (74-106) mg/dL Calcium 8.7 (8.5-10.1) mg/dL Total Bilirubin 0.3 (0.2-1.0) mg/dL AST 42 H D (15-37) U/L ALT 54 (12-78) U/L Alkaline Phosphatase 143 H D (46-116) U/L Total Protein 6.0 L (6.4-8.2) g/dL Albumin 2.6 L (3.4-5.0) g/dL Globulin 3.4 (2.3-3.5) g/dL Albumin/Globulin Ratio 0.8 L (1.2-2.2) Urine Color (YELLOW) Urine Appearance (CLEAR) Urine pH (5.0-8.0) Ur Specific [place] (1.008-1.030) Urine Protein (NEGATIVE) mg/dL Urine Glucose (UA) (NEGATIVE) mg/dL Urine Ketones (NEGATIVE) mg/dL Urine Occult Blood (NEGATIVE) Urine Nitrite (NEGATIVE) Urine Bilirubin (NEGATIVE) Urine Urobilinogen (0.2-1.0) EU/dL Ur Leukocyte Esterase (NEGATIVE) Urine RBC (0-5) Urine WBC (0-5) Ur Epithelial Cells Amorphous Sediment Urine Bacteria Urine Mucus Urine Opiates Screen Negative (NEGATIVE) Ur Oxycodone Screen Negative (NEGATIVE) Urine Methadone Screen Negative (NEGATIVE) Ur Propoxyphene Screen Negative (NEGATIVE) Ur Barbiturates Screen Negative (NEGATIVE) Ur Tricyclics Screen Negative (NEGATIVE) Ur Phencyclidine Scrn Negative (NEGATIVE) Ur Amphetamine Screen Negative (NEGATIVE) U Methamphetamines Scrn Negative (NEGATIVE) Urine MDMA Screen Negative (NEGATIVE) U Benzodiazepines Scrn Negative (NEGATIVE) U Cocaine Metab Screen Negative (NEGATIVE) U Marijuana (THC) Screen Negative (NEGATIVE) 06/04/21 Range/Units 07:29 WBC (4.5-11.0) K/uL RBC (3.30-5.50) M/uL Hgb (12.0-15.0) g/dL Hct (36.0-48.0) % MCV (80-98) fL MCH (27-31) pg MCHC (32-36) % Plt Count (150-400) K/uL Sodium (140-148) mmol/L Potassium (3.6-5.2) mmol/L Chloride (100-108) mmol/L Carbon Dioxide (21-32) mmol/L Anion Gap (5.0-14.0) mmol/L BUN (7-18) mg/dL Creatinine (0.6-1.0) mg/dL Est Cr Clr Drug Dosing mL/min Estimated GFR (MDRD) (>60) Glucose (74-106) mg/dL Calcium (8.5-10.1) mg/dL Total Bilirubin (0.2-1.0) mg/dL AST (15-37) U/L ALT (12-78) U/L Alkaline Phosphatase (46-116) U/L Total Protein (6.4-8.2) g/dL Albumin (3.4-5.0) g/dL Globulin (2.3-3.5) g/dL Albumin/Globulin Ratio (1.2-2.2) Urine Color Yellow (YELLOW) Urine Appearance Clear (CLEAR) Urine pH 7.0 (5.0-8.0) Ur Specific [place] 1.020 (1.008-1.030) Urine Protein Negative (NEGATIVE) mg/dL Urine Glucose (UA) Negative (NEGATIVE) mg/dL Urine Ketones Negative (NEGATIVE) mg/dL Urine Occult Blood Negative (NEGATIVE) Urine Nitrite Negative (NEGATIVE) Urine Bilirubin Negative (NEGATIVE) Urine Urobilinogen 0.2 (0.2-1.0) EU/dL Ur Leukocyte Esterase Small H (NEGATIVE) Urine RBC 0-5 (0-5) Urine WBC 5-10 H (0-5) Ur Epithelial Cells Many Amorphous Sediment Not seen Urine Bacteria Moderate Urine Mucus Not seen Urine Opiates Screen (NEGATIVE) Ur Oxycodone Screen (NEGATIVE) Urine Methadone Screen (NEGATIVE) Ur Propoxyphene Screen (NEGATIVE) Ur Barbiturates Screen (NEGATIVE) Ur Tricyclics Screen (NEGATIVE) Ur Phencyclidine Scrn (NEGATIVE) Ur Amphetamine Screen (NEGATIVE) U Methamphetamines Scrn (NEGATIVE) Urine MDMA Screen (NEGATIVE) U Benzodiazepines Scrn (NEGATIVE) U Cocaine Metab Screen (NEGATIVE) U Marijuana (THC) Screen (NEGATIVE) Result Diagrams: 06/04/21 07:20 06/04/21 07:20 - Problem List (1) SNOMED Code(s): 24135793 ICD Code: Z34.90 - ENCNTR FOR SUPRVSN OF NORMAL , UNSP, UNSP TRIMESTER Status: Acute Current Visit: Yes Qualifiers: Weeks of gestation: 39 weeks Qualified Code(s): Z3A.39 - 39 weeks gestation of (2) Elective induction of labor planned SNOMED Code(s): 777149911 ICD Code: BGW1595 - Status: Acute Current Visit: Yes Problem List Initiated/Reviewed/Updated: Yes Orders Last 24hrs: Active Orders 24 hr Category Date Time Status Patient Status [ADT] Routine ADT 06/04/21 07:29 Active Ambulate [RC] PER UNIT ROUTINE Care 06/04/21 07:29 Active Communication Order [RC] ASDIRECTED Care 06/04/21 07:29 Active Communication Order [RC] ASDIRECTED Care 06/04/21 07:29 Active Heart Tones [RC] PER UNIT ROUTINE Care 06/04/21 07:29 Active Non Stress Test [RC] Click to Edit Care 06/04/21 07:29 Active Insert Urinary Catheter [OM.PC] ASDIRECTED Care 06/04/21 07:30 Ordered Local Anesthetic Infusion Pump [RC] ASDIRECTED Care 06/04/21 07:29 Active May Shower [RC] ASDIRECTED Care 06/04/21 07:29 Active Notify Provider Vital Signs [RC] PRN Care 06/04/21 07:29 Active Notify Provider [RC] PRN Care 06/04/21 07:29 Active PCEA Epidural [RC] ASDIRECTED Care 06/04/21 07:30 Active Up ad Amanda [RC] ASDIRECTED Care 06/04/21 07:29 Active Urinary Catheter Assessment [RC] ASDIRECTED Care 06/04/21 07:30 Active VTE/DVT Education [RC] Click to Edit Care 06/04/21 07:31 Active Vital Signs [RC] PER UNIT ROUTINE Care 06/04/21 07:29 Active Regular Diet [DIET] Diet 06/04/21 Breakfast Active BPP w NST [US] Routine Exams 06/04/21 07:25 Taken Lactated Ringers [Ringers, Lactated] 1,000 ml Med 06/04/21 07:29 Active IV .BOLUS Ondansetron [Zofran] Med 06/04/21 07:29 Active 4 mg IV Q4H PRN Sodium Chloride 0.9% [Saline Flush] Med 06/04/21 07:29 Active 10 ml FLUSH ASDIRECTED PRN ePHEDrine [ePHEDrine sulfate] Med 06/04/21 07:29 Active 10 mg IVPUSH ASDIRECTED PRN DVT/VTE Prophylaxis Reflex [OM.PC] Routine Oth 06/04/21 07:29 Ordered Epidural Catheter Management [OM.PC] Urgent Oth 06/04/21 07:29 Ordered Saline Lock Insert [OM.PC] Routine Oth 06/04/21 07:29 Ordered Resuscitation Status Routine Resus Stat 06/04/21 07:29 Ordered Medication Orders Ephedrine Sulfate (Ephedrine 50 Mg/Ml Sdv) 10 mg IVPUSH ASDIRECTED PRN PRN Reason: Hypotension Lactated Ringer's (Ringers, Lactated) 1,000 mls @ 999 mls/hr IV .BOLUS ONE Stop: 06/04/21 08:29 Ondansetron HCl (Ondansetron 4 Mg/2 Ml Sdv) 4 mg IV Q4H PRN PRN Reason: Nausea/Vomiting Sodium Chloride (Sodium Chloride 0.9% 10 Ml Syringe) 10 ml FLUSH ASDIRECTED PRN PRN Reason: Keep Vein Open Assessment/Plan Comment:: 06/04/2021 30 yo here at 39 5/7 gestational weeks for an elective induction of labor per patient request FHTs category one BPP-8/8 NST reactive SVE-1.5/80/-2 Cytotec vaginally placed at 0815 Labs-AB positive, Hep B neg, Hep C neg, HIV neg, RPR nonreactive, Rubella Immune, GBS negative Plan- Monitor for active labor Monitor FHTS Bedrest for first hour after cytotec Then can be up ad amanda Can tub bath Can eat regular diet Pain management per patient request Notify provider if wants epidural Plan and anticipate vaginal delivery
--- NOTE | 2021-06-04 09:20 | US ---
BPP w NST INDICATION: induction COMPARISON: 11/12/2020 FINDINGS: Single live IUP in: Cephalic position. heart rate: 133 BPM. Biophysical profile score: 8/8. IMPRESSION: Normal biophysical profile score of 8/8.
[2021-06-04] MEDS ORDERED: Ropivacaine 100 ML ONE (16:58)
--- NOTE | 2021-06-04 17:08 | PCM.PNLD ---
Labor Progress Note - VS & Meds Vital Signs: Last Vital Signs Temp 36.3 C 06/04/21 14:50 Pulse 76 06/04/21 14:50 Resp 16 06/04/21 14:50 BP 138/83 06/04/21 14:50 Pulse Ox 99 06/04/21 14:50 Active Medications: Current Medications Ephedrine Sulfate (Ephedrine 50 Mg/Ml Sdv) 10 mg IVPUSH ASDIRECTED PRN PRN Reason: Hypotension Ondansetron HCl (Ondansetron 4 Mg/2 Ml Sdv) 4 mg IV Q4H PRN PRN Reason: Nausea/Vomiting Sodium Chloride (Sodium Chloride 0.9% 10 Ml Syringe) 10 ml FLUSH ASDIRECTED PRN PRN Reason: Keep Vein Open Discontinued Medications Lactated Ringer's (Ringers, Lactated) 1,000 mls @ 999 mls/hr IV .BOLUS ONE Stop: 06/04/21 08:29 Last Admin: 06/04/21 16:00 Dose: 999 mls/hr Documented by: Oxytocin/Sodium Chloride (Pitocin In Ns 20 Units/1,000 Ml) Confirm Administered Dose 20 unit in 1,000 mls @ as directed .ROUTE .STK-MED ONE Stop: 06/04/21 09:46 Ropivacaine (Naropin 0.2%) Confirm Administered Dose 100 mls @ as directed .ROUTE .STK-MED ONE Stop: 06/04/21 16:59 Misoprostol (Misoprostol 50 Mcg (1/2 Of 100 Mcg) Tab) 50 mcg VAG ONETIME ONE Stop: 06/04/21 07:31 Last Admin: 06/04/21 08:11 Dose: 50 mcg Documented by: Misoprostol (Misoprostol 50 Mcg (1/2 Of 100 Mcg) Tab) 25 mcg VAG ONETIME ONE Stop: 06/04/21 07:31 Last Admin: 06/04/21 10:08 Dose: Not Given Documented by: Misoprostol (Misoprostol 50 Mcg (1/2 Of 100 Mcg) Tab) 50 mcg VAG ONETIME ONE Stop: 06/04/21 11:30 Last Admin: 06/04/21 16:29 Dose: Not Given Documented by: - Uterine Contractions Uterine Monitoring Mode: External [place] Contraction Frequency (min): 1-4 Contraction Duration (sec): 20-60 Contraction Intensity: Mild Uterine Resting Tone: Soft - Monitoring Heart Rate (FHR) Variability: Moderate (6-25 bmp) - Vaginal Exam Dilation (cm): 1.5 Effacement (Percent): 80 Station: -2 Cervical Position: Midposition Vaginal Exam Comment: no cervical change but cat patient would like to wait two more hours to see if changes if not will go home
--- NOTE | 2021-06-04 17:10 | PCM.PNLD ---
Labor Progress Note - VS & Meds Vital Signs: Last Vital Signs Temp 36.3 C 06/04/21 14:50 Pulse 76 06/04/21 14:50 Resp 16 06/04/21 14:50 BP 138/83 06/04/21 14:50 Pulse Ox 99 06/04/21 14:50 Active Medications: Current Medications Ephedrine Sulfate (Ephedrine 50 Mg/Ml Sdv) 10 mg IVPUSH ASDIRECTED PRN PRN Reason: Hypotension Ondansetron HCl (Ondansetron 4 Mg/2 Ml Sdv) 4 mg IV Q4H PRN PRN Reason: Nausea/Vomiting Sodium Chloride (Sodium Chloride 0.9% 10 Ml Syringe) 10 ml FLUSH ASDIRECTED PRN PRN Reason: Keep Vein Open Discontinued Medications Lactated Ringer's (Ringers, Lactated) 1,000 mls @ 999 mls/hr IV .BOLUS ONE Stop: 06/04/21 08:29 Last Admin: 06/04/21 16:00 Dose: 999 mls/hr Documented by: Oxytocin/Sodium Chloride (Pitocin In Ns 20 Units/1,000 Ml) Confirm Administered Dose 20 unit in 1,000 mls @ as directed .ROUTE .STK-MED ONE Stop: 06/04/21 09:46 Ropivacaine (Naropin 0.2%) Confirm Administered Dose 100 mls @ as directed .ROUTE .STK-MED ONE Stop: 06/04/21 16:59 Misoprostol (Misoprostol 50 Mcg (1/2 Of 100 Mcg) Tab) 50 mcg VAG ONETIME ONE Stop: 06/04/21 07:31 Last Admin: 06/04/21 08:11 Dose: 50 mcg Documented by: Misoprostol (Misoprostol 50 Mcg (1/2 Of 100 Mcg) Tab) 25 mcg VAG ONETIME ONE Stop: 06/04/21 07:31 Last Admin: 06/04/21 10:08 Dose: Not Given Documented by: Misoprostol (Misoprostol 50 Mcg (1/2 Of 100 Mcg) Tab) 50 mcg VAG ONETIME ONE Stop: 06/04/21 11:30 Last Admin: 06/04/21 16:29 Dose: Not Given Documented by: - Uterine Contractions Uterine Monitoring Mode: External [place] Contraction Frequency (min): 1-4 Contraction Duration (sec): 20-60 Contraction Intensity: Mild Uterine Resting Tone: Soft - Monitoring Heart Rate (FHR) Variability: Moderate (6-25 bmp) Accelerations: Present, 15x15 - Vaginal Exam Dilation (cm): 3-4 Effacement (Percent): 80 Station: -1 Cervical Position: Midposition - Labor Progress (Free Text) Labor Progress: 06/04/2021 Patient now progressing nicely Education done on AROM and patient verbalizes understanding of risks and benefits and agrees to this plan of care SVE-3-4/80/-1 AROM done with meconium fluid light with some particles Contractions regular FHTs category one Plan- Continue to monitor labor Continue to monitor FHTs Patient may get an epidural when desires Plan and anticipate a vaginal delivery
[2021-06-04] MEDS ORDERED: Lanolin 100% Cream 40 GM Tube TOP ONE (17:50)
[2021-06-04] MEDS ORDERED: Acetaminophen 325 MG Tab, 50 Tab Bulk Bottle PO PRN (17:50)
[2021-06-04] MEDS ORDERED: Witch Hazel Medicated Pads 100/Jar TOP ONE (17:50)
[2021-06-04] MEDS ORDERED: Ibuprofen 200 MG Tab, 24 Tab Bulk Bottle PO PRN (17:50)
[2021-06-04] MEDS ORDERED: Hydrocortisone 2.5% Crm 30 GM Tube TOP ONE (17:50)
[2021-06-04] MEDS ORDERED: Benzocaine 20% Top Spray 56 GM Bottle TOP ONE (17:50)
--- NOTE | 2021-06-04 17:53 | ANES ---
DATE OF SERVICE: 06/04/2021 INDICATION: Tamica is a 30-year-old female patient of Sweta Mulligan CNM. Please refer to Sweta's note for diagnosis. I was requested to consult for labor epidural placement. Upon arrival, healthy 30-year-old female. I reviewed the patient's history as well as lab work, found no contraindication to labor epidural placement, and consent was signed. TECHNIQUE: Placed her in a seated position. Betadine prep x3 to lumbar region. Sterile drape was placed, 1% lidocaine skin wheal as well as deep at the L3-L4 region. A 17-gauge Tuohy was placed to loss of resistance. Negative CSF, negative heme, negative paresthesia. A catheter was placed at 12 cm. The needle was removed. I dosed her with a test dose of 3 mL of 1 to 1.5% lidocaine with 1:200,000 epinephrine. She tolerated the procedure quite well, negative sequelae to test dose. Catheter was secured. Placed her in a supine position. Dosed her with 12 mL of 0.2% ropivacaine and began infusion of the same 0.2% ropivacaine. Again, she tolerated procedure quite well. Please refer to nursing notes for vital signs and neuro status, which were unchanged and within normal limits. [place] CRNA /[id number]
--- NOTE | 2021-06-04 19:04 | PCM.DEL ---
L & D Note - General Info Date of Service: 06/04/21 Mother's Due Date: 06/06/21 - Delivery Note Labor: Augmented by ARM Cervical Ripening Method: Misoprostil Delivery Outcome: Livebirth Delivery Method: Spontaneous Vaginal Delivery-Single Infant Delivery Mode: Spontaneous Presentation: Left Occiput Anterior (PAVITHRA) Nuchal Cord: None Anesthesia Type: Epidural (did not work well by delivery time) Amniotic Fluid Description: Meconium Stained Episiotomy Type: None Laceration: None Placenta: Intact, Spontaneous, Meconium Stained Cord: 3 Vessels Estimated Blood Loss: 250 Resuscitation Needed: No [place]: Bulb Syringe, Stimulated, Warmed, [place] Used Score 1 min: 8 Score 5 min: 9 Second Stage Interventions: Reports: Second Nurse Assessed Progress of Descent, Second Nurse Reviewed Contraction Pattern, Second Nurse Reviewed Heart Tones, Encouragement Given, Pushing Effectively, Pushing, McRobert's Position, Pushing, Pulls Own Legs Back, Pushing, Stirrups/Leg Supports Delivery Comments (Free Text/Narrative):: 06/04/2021 30 yo delivered a viable male at 1732 on 06/04/2021 over an intact perineum in PAVITHRA position. Patient had progressed quickly while waiting for epidural and shortly after epidural placement was complete. Patient pushed three times with little guidance and was able to then deliver . Infant was then placed up on mother's abdomen on prewarmed blanket. Delayed cord clamping was done for approximately 90 seconds before cord was double clamped by provider and cut by father of infant. was crying vigorously and pinking in color. Infant was dried, stimulated, and bulb suctioned. Infant and umbilical cord were meconium stained. APGARS-8/9, weight-6lbs 11oz, length-20 inches. Placenta then came Long and intact but meconium stained. Three vessel cord noted. EBL-250 ml, no lacerations noted of vagina, perineum, cervix, or rectum. now skin to skin and stable with mother in labor and delivery room. Stages of labor- [id number] 2nd- [id number] 3rd- [id number] - General Info Date of Service: 06/04/21 Functional Status: Reports: Pain Controlled - Review of Systems General: Reports: No Symptoms HEENT: Reports: No Symptoms Pulmonary: Reports: No Symptoms Cardiovascular: Reports: No Symptoms Gastrointestinal: Reports: No Symptoms Genitourinary: Reports: No Symptoms Musculoskeletal: Reports: No Symptoms Skin: Reports: No Symptoms Neurological: Reports: No Symptoms Psychiatric: Reports: No Symptoms - Patient Data Vitals - Most Recent: Last Vital Signs Temp 36.3 C 06/04/21 14:50 Pulse 86 06/04/21 17:10 Resp 18 06/04/21 17:15 BP 137/79 06/04/21 17:15 Pulse Ox 99 06/04/21 17:15 Weight - Most Recent: 71.395 kg I&O - Last 24 Hours: Intake & Output 06/04/21 06/04/21 06/04/21 06:59 14:59 22:59 Intake Total 200 Balance 200 Lab Results Last 24 Hours: Laboratory Results - last 24 hr 06/04/21 06/04/21 06/04/21 Range/Units 07:05 07:20 07:20 WBC 11.6 H (4.5-11.0) K/uL RBC 4.27 (3.30-5.50) M/uL Hgb 13.0 (12.0-15.0) g/dL Hct 39.8 (36.0-48.0) % MCV 93 (80-98) fL MCH 30 (27-31) pg MCHC 33 (32-36) % Plt Count 215 (150-400) K/uL Sodium 138 L (140-148) mmol/L Potassium 3.8 (3.6-5.2) mmol/L Chloride 103 (100-108) mmol/L Carbon Dioxide 20 L (21-32) mmol/L Anion Gap 18.8 H (5.0-14.0) mmol/L BUN 11 (7-18) mg/dL Creatinine 0.9 (0.6-1.0) mg/dL Est Cr Clr Drug Dosing 72.29 mL/min Estimated GFR (MDRD) > 60 (>60) Glucose 102 (74-106) mg/dL Calcium 8.7 (8.5-10.1) mg/dL Total Bilirubin 0.3 (0.2-1.0) mg/dL AST 42 H D (15-37) U/L ALT 54 (12-78) U/L Alkaline Phosphatase 143 H D (46-116) U/L Total Protein 6.0 L (6.4-8.2) g/dL Albumin 2.6 L (3.4-5.0) g/dL Globulin 3.4 (2.3-3.5) g/dL Albumin/Globulin Ratio 0.8 L (1.2-2.2) Urine Color (YELLOW) Urine Appearance (CLEAR) Urine pH (5.0-8.0) Ur Specific [place] (1.008-1.030) Urine Protein (NEGATIVE) mg/dL Urine Glucose (UA) (NEGATIVE) mg/dL Urine Ketones (NEGATIVE) mg/dL Urine Occult Blood (NEGATIVE) Urine Nitrite (NEGATIVE) Urine Bilirubin (NEGATIVE) Urine Urobilinogen (0.2-1.0) EU/dL Ur Leukocyte Esterase (NEGATIVE) Urine RBC (0-5) Urine WBC (0-5) Ur Epithelial Cells Amorphous Sediment Urine Bacteria Urine Mucus Urine Opiates Screen Negative (NEGATIVE) Ur Oxycodone Screen Negative (NEGATIVE) Urine Methadone Screen Negative (NEGATIVE) Ur Propoxyphene Screen Negative (NEGATIVE) Ur Barbiturates Screen Negative (NEGATIVE) Ur Tricyclics Screen Negative (NEGATIVE) Ur Phencyclidine Scrn Negative (NEGATIVE) Ur Amphetamine Screen Negative (NEGATIVE) U Methamphetamines Scrn Negative (NEGATIVE) Urine MDMA Screen Negative (NEGATIVE) U Benzodiazepines Scrn Negative (NEGATIVE) U Cocaine Metab Screen Negative (NEGATIVE) U Marijuana (THC) Screen Negative (NEGATIVE) 06/04/21 Range/Units 07:29 WBC (4.5-11.0) K/uL RBC (3.30-5.50) M/uL Hgb (12.0-15.0) g/dL Hct (36.0-48.0) % MCV (80-98) fL MCH (27-31) pg MCHC (32-36) % Plt Count (150-400) K/uL Sodium (140-148) mmol/L Potassium (3.6-5.2) mmol/L Chloride (100-108) mmol/L Carbon Dioxide (21-32) mmol/L Anion Gap (5.0-14.0) mmol/L BUN (7-18) mg/dL Creatinine (0.6-1.0) mg/dL Est Cr Clr Drug Dosing mL/min Estimated GFR (MDRD) (>60) Glucose (74-106) mg/dL Calcium (8.5-10.1) mg/dL Total Bilirubin (0.2-1.0) mg/dL AST (15-37) U/L ALT (12-78) U/L Alkaline Phosphatase (46-116) U/L Total Protein (6.4-8.2) g/dL Albumin (3.4-5.0) g/dL Globulin (2.3-3.5) g/dL Albumin/Globulin Ratio (1.2-2.2) Urine Color Yellow (YELLOW) Urine Appearance Clear (CLEAR) Urine pH 7.0 (5.0-8.0) Ur Specific [place] 1.020 (1.008-1.030) Urine Protein Negative (NEGATIVE) mg/dL Urine Glucose (UA) Negative (NEGATIVE) mg/dL Urine Ketones Negative (NEGATIVE) mg/dL Urine Occult Blood Negative (NEGATIVE) Urine Nitrite Negative (NEGATIVE) Urine Bilirubin Negative (NEGATIVE) Urine Urobilinogen 0.2 (0.2-1.0) EU/dL Ur Leukocyte Esterase Small H (NEGATIVE) Urine RBC 0-5 (0-5) Urine WBC 5-10 H (0-5) Ur Epithelial Cells Many Amorphous Sediment Not seen Urine Bacteria Moderate Urine Mucus Not seen Urine Opiates Screen (NEGATIVE) Ur Oxycodone Screen (NEGATIVE) Urine Methadone Screen (NEGATIVE) Ur Propoxyphene Screen (NEGATIVE) Ur Barbiturates Screen (NEGATIVE) Ur Tricyclics Screen (NEGATIVE) Ur Phencyclidine Scrn (NEGATIVE) Ur Amphetamine Screen (NEGATIVE) U Methamphetamines Scrn (NEGATIVE) Urine MDMA Screen (NEGATIVE) U Benzodiazepines Scrn (NEGATIVE) U Cocaine Metab Screen (NEGATIVE) U Marijuana (THC) Screen (NEGATIVE) Med Orders - Current: Current Medications Acetaminophen (Acetaminophen 325 Mg Tab, 50 Tab Bulk Bottle) 1 - 2 mg PO Q4H PRN PRN Reason: Pain Ephedrine Sulfate (Ephedrine 50 Mg/Ml Sdv) 10 mg IVPUSH ASDIRECTED PRN PRN Reason: Hypotension Ibuprofen (Ibuprofen 200 Mg Tab, 24 Tab Bulk Bottle) 600 mg PO Q6H PRN PRN Reason: Pain Ondansetron HCl (Ondansetron 4 Mg/2 Ml Sdv) 4 mg IV Q4H PRN PRN Reason: Nausea/Vomiting Sodium Chloride (Sodium Chloride 0.9% 10 Ml Syringe) 10 ml FLUSH ASDIRECTED PRN PRN Reason: Keep Vein Open Discontinued Medications Benzocaine (Benzocaine 20% Top [place] 56 Gm Bottle) 0 gm TOP ONETIME ONE Stop: 06/04/21 17:51 Emollient Ointment (Lanolin 100% Cream 40 Gm Tube) 0 gm TOP ONETIME ONE Stop: 06/04/21 17:51 Hydrocortisone (Hydrocortisone 2.5% Crm 30 Gm Tube) 0 gm TOP ONETIME ONE Stop: 06/04/21 17:51 Lactated Ringer's (Ringers, Lactated) 1,000 mls @ 999 mls/hr IV .BOLUS ONE Stop: 06/04/21 08:29 Last Admin: 06/04/21 16:00 Dose: 999 mls/hr Documented by: Oxytocin/Sodium Chloride (Pitocin In Ns 20 Units/1,000 Ml) Confirm Administered Dose 20 unit in 1,000 mls @ as directed .ROUTE .STK-MED ONE Stop: 06/04/21 09:46 Ropivacaine (Naropin 0.2%) Confirm Administered Dose 100 mls @ as directed .ROUTE .STK-MED ONE Stop: 06/04/21 16:59 Misoprostol (Misoprostol 50 Mcg (1/2 Of 100 Mcg) Tab) 50 mcg VAG ONETIME ONE Stop: 06/04/21 07:31 Last Admin: 06/04/21 08:11 Dose: 50 mcg Documented by: Misoprostol (Misoprostol 50 Mcg (1/2 Of 100 Mcg) Tab) 25 mcg VAG ONETIME ONE Stop: 06/04/21 07:31 Last Admin: 06/04/21 10:08 Dose: Not Given Documented by: Misoprostol (Misoprostol 50 Mcg (1/2 Of 100 Mcg) Tab) 50 mcg VAG ONETIME ONE Stop: 06/04/21 11:30 Last Admin: 06/04/21 16:29 Dose: Not Given Documented by: Janay Yuan (Witch Lissy Medicated Pads 100/Jar) 1 pad TOP ONETIME ONE Stop: 06/04/21 17:51 - Exam General: Alert, Oriented, Cooperative HEENT: Pupils Equal, Pupils Reactive, EOMI, Mucous Membr. Moist/[place]: Supple Lungs: Clear to Auscultation, Normal Respiratory Effort Cardiovascular: Regular Rate, Regular Rhythm GI/Abdominal Exam: Normal Bowel Sounds, Soft, Non-Tender, No Organomegaly, No Distention, No Abnormal Bruit, No Mass, Pelvis Stable (Female) Exam: Normal External Exam, Normal Speculum Exam, Normal Bimanual Exam, Enlarged Uterus, Vaginal Bleeding Back Exam: Normal Inspection, Full Range of Motion Extremities: Normal Inspection, Normal Range of Motion, Non-Tender, No Pedal Edema, Normal Capillary Refill Skin: Warm, Dry, Intact Neurological: No New Focal Deficit Psy/Mental Status: Alert, Normal Affect, Normal Mood - Problem List & Annotations (1) SNOMED Code(s): 68714050 Code(s): Z34.90 - ENCNTR FOR SUPRVSN OF NORMAL , UNSP, UNSP TRIMESTER Status: Acute Current Visit: Yes Qualifiers: Weeks of gestation: 39 weeks Qualified Code(s): Z3A.39 - 39 weeks gestation of (2) Elective induction of labor planned SNOMED Code(s): 048102483 Code(s): SYQ6718 - Status: Acute Current Visit: Yes (3) (infant) SNOMED Code(s): 910251551 Code(s): Z78.9 - OTHER SPECIFIED HEALTH STATUS Status: Acute Current Visit: Yes (4) Meconium in amniotic fluid SNOMED Code(s): 551392701 Code(s): P96.83 - MECONIUM STAINING Status: Acute Current Visit: Yes (5) Normal vaginal delivery SNOMED Code(s): 35093152, 241689350 Code(s): O80 - ENCOUNTER FOR FULL-TERM UNCOMPLICATED DELIVERY Status: Acute Current Visit: Yes - Problem List Review Problem List Initiated/Reviewed/Updated: Yes - My Orders Last 24 Hours: My Active Orders 06/04/21 07:29 Patient Status [ADT] Routine Ambulate [RC] PER UNIT ROUTINE Communication Order [RC] ASDIRECTED Communication Order [RC] ASDIRECTED Heart Tones [RC] PER UNIT ROUTINE Non Stress Test [RC] Click to Edit Local Anesthetic Infusion Pump [RC] ASDIRECTED May Shower [RC] ASDIRECTED Notify Provider Vital Signs [RC] PRN Notify Provider [RC] PRN Up ad Patricia [RC] ASDIRECTED Vital Signs [RC] PER UNIT ROUTINE Ondansetron [Zofran] 4 mg IV Q4H PRN Sodium Chloride 0.9% [Saline Flush] 10 ml FLUSH ASDIRECTED PRN ePHEDrine [ePHEDrine sulfate] 10 mg IVPUSH ASDIRECTED PRN DVT/VTE Prophylaxis Reflex [OM.PC] Routine Epidural Catheter Management [OM.PC] Urgent Saline Lock Insert [OM.PC] Routine Resuscitation Status Routine 06/04/21 07:30 Insert Urinary Catheter [OM.PC] ASDIRECTED PCEA Epidural [RC] ASDIRECTED Urinary Catheter Assessment [RC] ASDIRECTED 06/04/21 07:31 VTE/DVT Education [RC] Click to Edit 06/04/21 Breakfast Regular Diet [DIET] 06/04/21 17:50 Patient Status [ADT] Routine Vital Signs [RC] PFP Consult to [place] Blank Handler [CONS] Routine Acetaminophen [Tylenol Bulk Bottle] 1 - 2 mg PO Q4H PRN Ibuprofen [Motrin Bulk Bottle] 600 mg PO Q6H PRN Assess Lochia [WOMSER] Per Unit Routine Assess Uterine Involution [WOMSER] Per Unit Routine 06/04/21 17:51 Ice Therapy [OM.PC] Per Unit Routine Perineal Care [OM.PC] Per Unit Routine Sitz Bath [OM.PC] Per Unit Routine 06/05/21 06:00 CBC WITH AUTO DIFF [HEME] Routine - Assessment Assessment:: 06/04/2021 30 yo G5 now P2 without complications Meconium stained fluid - Plan Plan:: 06/04/2021 30 yo here at 39 5/7 gestational weeks for an elective induction of labor per patient request FHTs category one BPP-8/8 NST reactive SVE-1.5/80/-2 Cytotec vaginally placed at 0815 Labs-AB positive, Hep B neg, Hep C neg, HIV neg, RPR nonreactive, Rubella Immune, GBS negative Plan- Monitor for active labor Monitor FHTS Bedrest for first hour after cytotec Then can be up ad patricia Can tub bath Can eat regular diet Pain management per patient request Notify provider if wants epidural Plan and anticipate vaginal delivery 06/04/2021 routine cares Encourage and support Plan discharge in 24-48 hrs
[2021-06-04] MEDS ORDERED: Docusate Sodium 100 MG Cap PO PRN (21:28)
[2021-06-05 09:54] VITALS: PULSE 84
--- NOTE | 2021-06-05 12:20 | PCM.PNPP ---
- General Info Date of Service: 06/05/21 (PPD 1) Functional Status: Reports: Pain Controlled - Review of Systems General: Reports: No Symptoms HEENT: Reports: No Symptoms Pulmonary: Reports: No Symptoms Cardiovascular: Reports: No Symptoms Gastrointestinal: Reports: No Symptoms Genitourinary: Reports: No Symptoms Musculoskeletal: Reports: No Symptoms Skin: Reports: No Symptoms Neurological: Reports: No Symptoms Psychiatric: Reports: No Symptoms - Patient Data Vital Signs - Most Recent: Last Vital Signs Temp 97.3 F 06/05/21 08:00 Pulse 84 06/05/21 08:00 Resp 16 06/05/21 08:00 BP 123/81 06/05/21 08:00 Pulse Ox 99 06/05/21 08:00 Weight - Most Recent: 157 lb 6.384 oz I&O - Last 24 Hours: Intake & Output 06/04/21 06/05/21 06/05/21 22:59 06:59 14:59 Intake Total 1600 Output Total 905 Balance -905 1600 Lab Results - Last 24 Hours: Laboratory Results - last 24 hr 06/05/21 Range/Units 06:45 WBC 9.5 (4.5-11.0) K/uL RBC 3.81 (3.30-5.50) M/uL Hgb 12.1 (12.0-15.0) g/dL Hct 35.8 L (36.0-48.0) % MCV 94 (80-98) fL MCH 32 H (27-31) pg MCHC 34 (32-36) % Plt Count 167 (150-400) K/uL Neut % (Auto) 76.1 H (36-66) % Lymph % (Auto) 16.8 L (24-44) % [place] % (Auto) 6.3 H (2-6) % Eos % (Auto) 0.6 L (2-4) % Baso % (Auto) 0.2 (0-1) % Med Orders - Current: Current Medications Acetaminophen (Acetaminophen 325 Mg Tab, 50 Tab Bulk Bottle) 1 - 2 mg PO Q4H PRN PRN Reason: Pain Last Admin: 06/04/21 19:23 Dose: 1 bottle Documented by: Docusate Sodium (Docusate Sodium 100 Mg Cap) 100 mg PO BID PRN PRN Reason: Constipation Last Admin: 06/04/21 21:38 Dose: 100 mg Documented by: Ephedrine Sulfate (Ephedrine 50 Mg/Ml Sdv) 10 mg IVPUSH ASDIRECTED PRN PRN Reason: Hypotension Oxytocin/Sodium Chloride (Pitocin In Ns 20 Units/1,000 Ml) 20 unit in 1,000 mls @ 2,997 mls/hr IV TITRATE BORIS; Protocol Last Admin: 06/04/21 17:35 Dose: 999 munits/min, 2,997 mls/hr Documented by: Ibuprofen (Ibuprofen 200 Mg Tab, 24 Tab Bulk Bottle) 600 mg PO Q6H PRN PRN Reason: Pain Last Admin: 06/04/21 19:24 Dose: 1 bottle Documented by: Ondansetron HCl (Ondansetron 4 Mg/2 Ml Sdv) 4 mg IV Q4H PRN PRN Reason: Nausea/Vomiting Sodium Chloride (Sodium Chloride 0.9% 10 Ml Syringe) 10 ml FLUSH ASDIRECTED PRN PRN Reason: Keep Vein Open Discontinued Medications Benzocaine (Benzocaine 20% Top [place] 56 Gm Bottle) 0 gm TOP ONETIME ONE Stop: 06/04/21 17:51 Last Admin: 06/04/21 19:24 Dose: 1 bottle Documented by: Emollient Ointment (Lanolin 100% Cream 40 Gm Tube) 0 gm TOP ONETIME ONE Stop: 06/04/21 17:51 Last Admin: 06/04/21 19:22 Dose: 1 applic Documented by: Hydrocortisone (Hydrocortisone 2.5% Crm 30 Gm Tube) 0 gm TOP ONETIME ONE Stop: 06/04/21 17:51 Last Admin: 06/04/21 19:23 Dose: 1 applic Documented by: Lactated Ringer's (Ringers, Lactated) 1,000 mls @ 999 mls/hr IV .BOLUS ONE Stop: 06/04/21 08:29 Last Admin: 06/04/21 16:00 Dose: 999 mls/hr Documented by: Oxytocin/Sodium Chloride (Pitocin In Ns 20 Units/1,000 Ml) Confirm Administered Dose 20 unit in 1,000 mls @ as directed .ROUTE .STK-MED ONE Stop: 06/04/21 09:46 Last Admin: 06/04/21 17:35 Dose: 999 mls/hr Documented by: Ropivacaine (Naropin 0.2%) Confirm Administered Dose 100 mls @ as directed .Cherri BETH .STK-MED ONE Stop: 06/04/21 16:59 Oxytocin/Sodium Chloride (Pitocin In Ns 20 Units/1,000 Ml) 20 unit in 1,000 mls @ 2,997 mls/hr IV TITRATE BORIS; Protocol Misoprostol (Misoprostol 50 Mcg (1/2 Of 100 Mcg) Tab) 50 mcg VAG ONETIME ONE Stop: 06/04/21 07:31 Last Admin: 06/04/21 08:11 Dose: 50 mcg Documented by: Misoprostol (Misoprostol 50 Mcg (1/2 Of 100 Mcg) Tab) 25 mcg VAG ONETIME ONE Stop: 06/04/21 07:31 Last Admin: 06/04/21 10:08 Dose: Not Given Documented by: Misoprostol (Misoprostol 50 Mcg (1/2 Of 100 Mcg) Tab) 50 mcg VAG ONETIME ONE Stop: 06/04/21 11:30 Last Admin: 06/04/21 16:29 Dose: Not Given Documented by: Janay Yuan (Witch Lissy Medicated Pads 100/Jar) 1 pad TOP ONETIME ONE Stop: 06/04/21 17:51 Last Admin: 06/04/21 19:23 Dose: 1 bottle Documented by: - Interaction Disposition, : in Room with Family Infant Interaction: Holding Infant Infant Feeding: Breastfed Infant; Nursed Well Support Person: - Recovery Exam Fundal Tone: Firm Fundal Level: 1 Fingerbreadths Below Umbilicus Fundal Placement: Midline Lochia Amount: Moderate Lochia Color: [place]/Red Perineum Description: Intact, Minimal Bruising/Swelling Bladder Status: Voiding Urinary Elimination: Voided - Exam General: Alert, Oriented HEENT: Pupils Equal Neck: Supple Lungs: Normal Respiratory Effort Cardiovascular: Regular Rate GI/Abdominal Exam: Normal Bowel Sounds, Soft Extremities: No Pedal Edema, Normal Capillary Refill Skin: Warm, Dry Wound/Incisions: Healing Well Psy/Mental Status: Alert, Normal Affect, Normal Mood - Problem List & Annotations (1) () SNOMED Code(s): 384475460 Code(s): Z78.9 - OTHER SPECIFIED HEALTH STATUS Status: Acute Current Visit: Yes (2) Normal vaginal delivery SNOMED Code(s): 00585042, 991193418 Code(s): O80 - ENCOUNTER FOR FULL-TERM UNCOMPLICATED DELIVERY Status: Acute Current Visit: Yes (3) Term SNOMED Code(s): 44251167 Code(s): Z34.90 - ENCNTR FOR SUPRVSN OF NORMAL , UNSP, UNSP TRIMESTER Status: Acute Current Visit: No (4) Elective induction of labor planned SNOMED Code(s): 971375332 Code(s): DVI3578 - Status: Acute Current Visit: Yes - Problem List Review Problem List Initiated/Reviewed/Updated: Yes - Assessment Assessment:: 06/04/2021 30 yo G5 now P2 without complications Meconium stained fluid 06/05/21 30 year old without complications Feeling well, happy breast soft, nursing well voiding flow light, cramps mild want tot go home today HGB 12.1 - Plan Plan:: 06/04/2021 30 yo here at 39 5/7 gestational weeks for an elective induction of labor per patient request FHTs category one BPP-8/8 NST reactive SVE-1.5/80/-2 Cytotec vaginally placed at 0815 Labs-AB positive, Hep B neg, Hep C neg, HIV neg, RPR nonreactive, Rubella Immune, GBS negative Plan- Monitor for active labor Monitor FHTS Bedrest for first hour after cytotec Then can be up ad patricia Can tub bath Can eat regular diet Pain management per patient request Notify provider if wants epidural Plan and anticipate vaginal delivery 06/04/2021 routine cares Encourage and support Plan discharge in 24-48 hrs 06/05/21 Home today six week post visit with Monico PRAJAPATI
[2021-06-05 14:30] VITALS: BP 117/86
== END 2021-06-05 18:30 | disposition home or self-care (01) | DRG 560 ==
LOC: JP.OB 06:55 → OBSVTOIN 17:32 → JP.OB 17:32 → JP.MS 20:22
PROVIDERS: ADMIT Advanced Practice Midwife; ATTEND Advanced Practice Midwife
PROC: 10E0XZZ Delivery of Products of Conception, External Approach (ICD-10-PCS; principal; 2021-06-04)
PROC: 10907ZC Drainage of Amniotic Fluid, Therapeutic from Products of Conception, Via Natural or Artificial Opening (ICD-10-PCS; 2021-06-04)
PROC: 3E0P7VZ Introduction of Hormone into Female Reproductive, Via Natural or Artificial Opening (ICD-10-PCS; 2021-06-04)
DX: O77.0 Labor and delivery complicated by meconium in amniotic fluid (principal); Z37.0 Single live birth; Z3A.39 39 weeks gestation of pregnancy; Z88.5 Allergy status to narcotic agent
CPT/HCPCS: 36415; 51701; 76818; 76818-26; 80053; 80305-QW; 81001; 85025; 85027; A9270-GY; J2590; J2795; J7120